=== PATIENT | female | born 1960 | race Caucasian/White ===

== ENCOUNTER 2020-06-24 12:05 | Inpatient (IN) | payer MEDICARE ==
[2020-06-24] VITALS (54 sets, daily range): BP systolic 64–160; BP diastolic 30–92
[~2020-06-24] VITALS: Ht 170.2 cm; Wt 114.8 kg
--- NOTE | ~2020-06-24 | EMS ---
[address] [address] EMS Patient Care Report Name: CARLOS DELGADO Room: [facility]#: [id number] Admission: 06/24/20 Attend Phys: Discharge: Date of : 56 Report #: [id number] THIS REPORT FOR: //name// Report Transmitted: 06/24/2020 12:02 EMS Care Summary [facility] [place] Incident [id number] @ 06/24/2020 11:20 Incident Location [address] [place] [address] Patient CARLOS DELGADO Female, 59 Years 1960 Patient Address [address] [place] [address] Patient History Hypertension (HTN), Patient Allergies , Patient Medications Diltiazem, irbesartan, pantoprazole, Aspirin, atorvastatin, Chief Complaint Ingestion Disposition Transported No Lights/[place] Dispatch Reason Overdose/Poisoning/Ingestion Transported To [facility] Narrative Dispatched to address noted and staged for an intentional overdose. [facility] en route at time noted. Arrived on scene after [employer]. Patient was laying in bed, alert and oriented. [employer] stated that the patient took multiple medication today. (listed in medicaiton). Most of the pills where gone in all five containers. [address] [address] EMS Patient Care Report Name: [facility]AD[id number] Admission: 06/24/20 Attend Phys: Discharge: Date of : 56 Report #: [id number] Patient told [employer] that she intentionally took those medication to kill herself. Patients daughter called 911. Patient did not want to talk with all other responders in the room and agreed to go to [facility]. Patient was assisted out of the home and onto the stretcher. Once in ambulance, vitals where taken and patient stated that she feels as if she is holding the family together and failing at it. Patient stated that she does not want to live anymore. Patient stated she has taken pills once before but it was a long time ago. IV attempted with no success. 4 lead obtained. While en route, vitals where taken again and radio report was given at time noted. Arrived and took patient and her pill bottles to room 1. Patient was moved to bed and RN took verbal report. RN signed for patient and patient signed for self. END REPORT EMT-P David Debbie Initial Vitals @11:39SpO2: 99, @11:43SpO2: 100, @11:44SpO2: 92, @11:48SpO2: 96, @11:48SpO2: 99, @11:53SpO2: 98, @11:56SpO2: 96, @11:58SpO2: 97, @11:48P: 81,R: 16,BP: 173/99, @11:56P: 87,R: 15,BP: 159/99, @11:48GCS: 15, @11:56GCS: 15, @11:28 @11:44Glucose: 133, Assessments @11:28MENTAL:SKIN:HEENT:LUNG SOUNDS:ABDOMEN:PELVIS//GI:EXTREMITIES:PULSE:NEURO: Impression Mental disorder Procedures @11:44 cc () Site: Antecubital-LeftResponse: UnchangedSucceeded Timeline 11:20,Call Received 11:20,Dispatch Notified 11:20,Psap Call 11:20,Dispatched 11:20,En Route 11:26,[place] [address] EMS Patient Care Report Name: CARLOS DELGADO Room: [facility]#: [id number] Admission: 06/24/20 Attend Phys: Discharge: Date of : 56 Report #: [id number] 11:28,At Patient 11:28,BP: / M,PULSE: ,RR: R,SPO2: Ox,ETCO2: ,BG: ,PAIN: ,GCS: , 11:39,BP: / M,PULSE: ,RR: R,SPO2: 99 Ox,ETCO2: ,BG: ,PAIN: ,GCS: , 11:43,BP: / M,PULSE: ,RR: R,SPO2: 100 Ox,ETCO2: ,BG: ,PAIN: ,GCS: , 11:44,BP: / M,PULSE: ,RR: R,SPO2: 92 Ox,ETCO2: ,BG: ,PAIN: ,GCS: , 11:44, cc Site: Antecubital-Left,Response: UnchangedSucceeded, 11:44,BP: / M,PULSE: ,RR: R,SPO2: Ox,ETCO2: ,B,PAIN: ,GCS: , 11:46,Depart Scene 11:48,BP: / M,PULSE: ,RR: R,SPO2: 96 Ox,ETCO2: ,BG: ,PAIN: ,GCS: , 11:48,BP: / M,PULSE: ,RR: R,SPO2: 99 Ox,ETCO2: ,BG: ,PAIN: ,GCS: , 11:48,BP: 173/99 M,PULSE: 81,RR: 16 R,SPO2: Ox,ETCO2: ,BG: ,PAIN: ,GCS: , 11:48,BP: / M,PULSE: ,RR: R,SPO2: Ox,ETCO2: ,BG: ,PAIN: ,GCS: 15, 11:53,BP: / M,PULSE: ,RR: R,SPO2: 98 Ox,ETCO2: ,BG: ,PAIN: ,GCS: , 11:56,BP: / M,PULSE: ,RR: R,SPO2: 96 Ox,ETCO2: ,BG: ,PAIN: ,GCS: , 11:56,BP: 159/99 M,PULSE: 87,RR: 15 R,SPO2: Ox,ETCO2: ,BG: ,PAIN: ,GCS: , 11:56,BP: / M,PULSE: ,RR: R,SPO2: Ox,ETCO2: ,BG: ,PAIN: ,GCS: 15, 11:58,BP: / M,PULSE: ,RR: R,SPO2: 97 Ox,ETCO2: ,BG: ,PAIN: ,GCS: , 12:03,At Destination 12:14,Call Closed Disclaimer v1.1 Copyright 2020 [employer] This EMS Care Summary contains data elements from the applicable legal record (which may be displayed differently). It is designed to provide pertinent information for the following purposes: continuity of care, clinical quality, and state data reporting. The complete legal record is available to ED staff and administrators of the receiving hospital in [employer]'s Patient Tracker. All data is provided "as is."
[~2020-06-24 12:05] MED LIST: ADVAIR; ADVAIR 250-501 EACH; ALBUTEROL2.5 MG/31 IH; ALPRAZOLAM 0.50.5 M1 PO; AMITRIPTYLINE; AMITRIPTYLINE H10 M1 PO; AMLODIPINE BESYL5 MG PO; BUDEPRION SR150 MG PO; CARAFATE 1 GM TA1 G1; CARAFATE 1 GM TA1 GM PO; CIPROFLOXACIN500 M3 OR; COZAAR PO; COZAAR100 MG; CYCLOBENZAPRINE; CYMBALTA30 MG PO; DOXYCYCLINE 10100 MG PO; FLAGYL 250 MG250 MG OR; FLEXERIL; FLUOXETINE; FLUOXETINE HCL40 MG PO; HYDROCODON-ACE1 EACH; IBUPROFEN 600600 M1 PO; MEDROLDOSEPACK PO; MICROGESTIN FE1 EACH PO; MICROGESTIN1 EAC1; NASONEX17 GM; NORCO 5-325 TA1 EACH PO; NORVASC 5 MG TAB5 MG; PERCOCET 5-3251 EACH PO; PROAIR HFA8.5 GM; PROTONIX PO; PROTONIX40 M2; PROTONIX40 M2 PO; PROZAC; SIMVASTATIN; SIMVASTATIN40 MG PO; SINGULAIR; SINGULAIR 10 MG10 M1 PO; TRIAMTERENE-HC1 EAC1 PO; WELLBUTRIN SR150 MG; ZOCOR40 MG PO; ZOFRAN 4 MG ORAL4 M1 DIS; ZPAK PO; [UNRECOGNIZED DRUG - OTHER]; [UNRECOGNIZED DRUG - OTHER]; albuterol; nasonex; proair inhaler
[2020-06-24] MEDS ORDERED: ASA81BEC PO (12:13)
[2020-06-24] MEDS ORDERED: AVAPRO 150 MG150 MG PO (12:14)
[2020-06-24] MEDS ORDERED: CARDIZEM CD 18180 M3 PO (12:14)
[2020-06-24] MEDS ORDERED: LIPITOR20 MG PO (12:15)
[2020-06-24 12:28] LABS: URINE BILIRUBIN NEGATIVE (Negative); URINE BLOOD 2+ (Negative); URINE CLARITY CLEAR; URINE COLOR YELLOW; URINE GLUCOSE-RANDOM NEGATIVE (Negative); URINE KETONES NEGATIVE (Negative); URINE LEUKOCYTES-REFLEX 1+ (Negative); URINE NITRITE-REFLEX POSITIVE (Negative); URINE PROTEIN TRACE (Negative); URINE SPECIFIC GRAVITY 1.025 (1.005-1.030); URINE UROBILINOGEN 0.2 E.U./dl (0.2-1.0)
[2020-06-24 12:36] LABS: AMP/METHAMP Negative (Negative); BARBITURATES Negative (Negative); BENZODIAZEPINES Negative (Negative); COCAINE Negative (Negative); METHADONE Negative (Negative); OPIATES Negative (Negative); PCP Negative (Negative); SQUAMOUS 4-10 Moderate /LPF (0-3); THC Negative (Negative)
[2020-06-24 12:37] LABS: URINE WBC-REFLEX 6-15 Few /HPF (0-5); WBC CLUMPS Few (None Seen)
[2020-06-24 12:38] LABS: BACTERIA-REFLEX >30 Many /HPF (None Seen); CASTS None Seen /LPF (None Seen); CRYSTALS None Seen /LPF (None Seen); MUCUS 0-3 Light strn/LPF (None Seen); URINE RBC 3-10 Few /HPF (0-2)
[2020-06-24 12:42] LABS: ABSOLUTE BASOPHILS 0.2 thou/uL (0.0-0.2); ABSOLUTE EOSINOPHILS 0.2 thou/uL (0.0-0.7); ABSOLUTE LYMPHOCYTES 2.3 thou/uL (0.8-5.3); ABSOLUTE MONOCYTES 0.6 thou/uL (0.0-1.2); ABSOLUTE NEUTROPHILS 12.4 thou/uL (1.6-8.1); BASOPHILS 1.1 %; EOSINOPHILS 1.3 %; HEMOGLOBIN 12.6 gm/dL (12.0-15.0); LYMPHOCYTES 14.4 %; MCH 21.4 pg (26.0-34.0); MCHC 30.7 g/dL (28.0-37.0); MCV 69.6 fL (80.0-100.0); MONOCYTES 3.7 %; MPV 7.7 fl. (7.2-11.1); NUCLEATED RBCS 0 /100WBC; PLATELET COUNT* 364 thou/uL (150-400); POLYS 79.5 %; RBC 5.88 mil/uL (4.20-5.00); RDW-CV 19.9 % (10.5-14.5); WBC 15.7 thou/uL (4.0-11.0)
[2020-06-24 12:44] LABS: CALCIUM 9.1 mg/dL (8.5-10.1); CREATININE 0.9 mg/dL (0.6-1.3); POTASSIUM 3.7 mmol/L (3.5-5.1)
[2020-06-24 12:49] LABS: ALBUMIN 3.9 g/dL (3.4-5.0); TOTAL BILIRUBIN 0.8 mg/dL (<0.1-1.0); TOTAL PROTEIN 8.1 g/dL (6.4-8.2)
[2020-06-24 12:53] LABS: ACETAMINOPHEN < 2 ug/mL (10-30); ALCOHOL < 10 mg/dL (<10); SALICYLATE 5.9 mg/dL (2.8-20.0)
[2020-06-24 13:24] LABS: HYPOCHROMASIA 2+; MICROCYTES 2+; PLATELET ESTIMATE ADEQUATE
[2020-06-24 13:25] LABS: ANISOCYTOSIS 2+; OVALOCYTES 1+
--- NOTE | 2020-06-24 16:21 | EKG ---
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 : 1960 Requested By: Quentin Hurtado Order Number: [id number] MD: Fede More Measurements Intervals [place] Rate: 86 P: 17 IN: 184 QRS: 27 QRSD: 105 T: 23 QT: 399 QTc: 478 Interpretive Statements Sinus rhythm Ventricular premature complex Left atrial enlargement Inferior infarct, old Anteroseptal infarct, age indeterminate Compared to ECG 10/12/2011 15:21:41 Ventricular premature complex(es) now present Atrial abnormality now present Electronically Signed On 06-24-2020 16:21:20 CDT by Fede More [email or web address] <ELECTRONICALLY SIGNED> By: Fede More MD, FACC 06/24/20 1621 1222 1222 Fede More MD, FACC /EPI
--- NOTE | 2020-06-24 17:10 | CON ---
[address] [address] CONSULTATION Name: CARLOS DELGADO Room: [place] [address] [facility]#: [id number] Admission: 06/24/20 Attend Phys: Robert Moore MD Discharge: Date of : 56 Report #: [id number] THIS REPORT FOR: //name// cc: Janina Ferguson Tammy RNP ~ THIS REPORT FOR: //name// DATE OF SERVICE: 06/24/2020 CARDIOLOGY CONSULTATION HISTORY OF PRESENT ILLNESS: The patient 59-year-old white female who I was asked to see in the Emergency Room today after she is noted to be hypertensive. The patient denies previous history of heart disease. She has had multiple problems in the past including scoliosis and has a iza in her back. She has a history of polycythemia vera. She has a history of hypertension, hyperlipidemia, but no history of heart disease. Apparently, the patient was feeling depressed this morning and took an overdose of her pills at 11:00. The medications she took included several tablets of diltiazem, aspirin, atorvastatin, Avapro and Protonix. An ambulance brought the patient to the Emergency Room. She denies any recent chest pain, increased shortness of breath, palpitations, syncope or peripheral edema. PAST MEDICAL HISTORY: She has had a previous ectopic , hernia repair. HOME MEDICATIONS: Include hydrocodone, Protonix, aspirin, diltiazem, Avapro, Lipitor, amlodipine, ____. ALLERGIES: She has no known drug allergies. FAMILY HISTORY: Negative for heart disease. SOCIAL HISTORY: She is . She and her live in [place]. No smoking or alcohol abuse. REVIEW OF SYSTEMS: No history of stroke. She has a history of asthma. No history of liver disease, kidney disease, cancer, chronic skin condition. PHYSICAL EXAMINATION: GENERAL: Revealed a middle-aged female lying in bed. She appeared in no acute distress. VITAL SIGNS: Blood pressure , pulse 70. HEENT: She is anicteric. Conjunctivae are pink. Mucous membranes moist. NECK: Veins do not appear distended. CHEST: Clear to auscultation. CARDIOVASCULAR: Regular rate and rhythm, [place] [address] CONSULTATION Name: CARLOS DELGADO Room: [address]#: [id number] Admission: 06/24/20 Attend Phys: Robert Moore MD Discharge: Date of : 56 Report #: [id number] ABDOMEN: Soft. EXTREMITIES: Had no edema. SKIN: Cool and dry. NEUROLOGIC: Nonfocal. RADIOLOGICAL DATA: ECG shows a sinus rhythm, occasional PVC, incomplete right bundle branch block. LABORATORY DATA: Her workup in the Emergency Room today included sodium 138, potassium 3.7, creatinine 0.9. Liver function studies were normal. Her white blood cell count was 15.7, hemoglobin 12.6. IMPRESSION AND RECOMMENDATIONS: 1. Drug overdose including a calcium cassie and ARB. I would recommend starting vasopressin to support her blood pressure. We will need to observe for bradycardia. 2. History of polycythemia vera. 3. Hypertension. I would hold medications at this time. 4. Hyperlipidemia. The patient is on a statin drug. 5. History of allergies. <ELECTRONICALLY SIGNED> By: Fede More MD, FACC 06/24/20 1710 1556 [id number] More MD, FACC /nt
[2020-06-25] VITALS (108 sets, daily range): BP systolic 74–145; BP diastolic 29–110
[2020-06-25 04:33] LABS: HEMATOCRIT 35.7 % (37.0-47.0); HEMOGLOBIN 10.8 gm/dL (12.0-15.0); MCH 20.9 pg (26.0-34.0); MCHC 30.1 g/dL (28.0-37.0); MCV 69.4 fL (80.0-100.0); MPV 7.9 fl. (7.2-11.1); NUCLEATED RBCS 0 /100WBC; RBC 5.15 mil/uL (4.20-5.00); RDW-CV 20.1 % (10.5-14.5)
[2020-06-25 04:41] LABS: PLATELET COUNT* 528 thou/uL (150-400); WBC 54.6 thou/uL (4.0-11.0)
[2020-06-25 06:41] LABS: CALCIUM 8.6 mg/dL (8.5-10.1)
[2020-06-25 06:43] LABS: CREATININE 2.5 mg/dL (0.6-1.3)
[2020-06-25 07:08] LABS: ABSOLUTE BASOPHILS 0.5 thou/uL (0.0-0.2); ABSOLUTE LYMPHOCYTES 3.8 thou/uL (0.8-5.3); ABSOLUTE MONOCYTES 1.6 thou/uL (0.0-1.2); ABSOLUTE NEUTROPHILS 48.6 thou/uL (1.6-8.1); MYELOCYTES 1 %
[2020-06-25 07:10] LABS: OVALOCYTES 1+; PLATELET ESTIMATE INCREASED; POIKILOCYTOSIS 1+; SCHISTOCYTES 1+
[2020-06-25 07:11] LABS: ANISOCYTOSIS 1+; GIANT PLATELETS RARE; MICROCYTES 3+
[2020-06-25 08:45] LABS: ALBUMIN 3.2 g/dL (3.4-5.0); DIRECT BILIRUBIN 0.5 mg/dL (<0.1-0.3); TOTAL BILIRUBIN 0.9 mg/dL (<0.1-1.0); TOTAL PROTEIN 6.3 g/dL (6.4-8.2)
[2020-06-25 09:25] LABS: BE -9.7 mmol/L (-2 to +3); PCO2 27.4 mmHg (35.0-45.0); PO2 69.6 mmHg (75.0-100.0); pH 7.343 (7.340-7.450)
--- NOTE | 2020-06-25 11:16 | EKG ---
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 : 1960 Requested By: Fede More Order Number: [id number] Celi MD: Fede More Measurements Intervals [place] Rate: 74 P: -83 AL: 269 QRS: -38 QRSD: 152 T: 114 QT: 442 QTc: 491 Interpretive Statements accelerated junctional rhythm Left bundle branch block Compared to ECG 06/24/2020 12:22:07 Left bundle-branch block now present Sinus rhythm no longer present Ventricular premature complex(es) no longer present Electronically Signed On 06-25-2020 11:16:05 CDT by Fede More [email or web address] <ELECTRONICALLY SIGNED> By: Fede More MD, FACC 06/25/20 1116 0550 0550 Fede More MD, FACC /EPI
[2020-06-25 12:22] LABS: CALCIUM 7.7 mg/dL (8.5-10.1); CREATININE 2.9 mg/dL (0.6-1.3); POTASSIUM 3.3 mmol/L (3.5-5.1)
[2020-06-25 15:22] LABS: URINE BLOOD 3+ (Negative); URINE CLARITY CLOUDY; URINE COLOR STRAW; URINE GLUCOSE-RANDOM NEGATIVE (Negative); URINE KETONES NEGATIVE (Negative); URINE LEUKOCYTES 2+ (Negative); URINE NITRITE NEGATIVE (Negative); URINE PROTEIN 2+ (Negative); URINE SPECIFIC GRAVITY >= 1.030 (1.005-1.030); URINE UROBILINOGEN 0.2 E.U./dl (0.2-1.0)
[2020-06-25 15:30] LABS: ICTOTEST (BILI CONFIRMATORY) Negative (Negative); URINE BILIRUBIN 1+ (Negative)
[2020-06-25 15:34] LABS: BACTERIA >30 Many /HPF (None Seen); SQUAMOUS 0-3 Few /LPF (0-3); URINE RBC >20 Many /HPF (0-2); URINE WBC >25 Many /HPF (0-5)
[2020-06-25 15:35] LABS: CASTS None Seen /LPF (None Seen); CRYSTALS None Seen /LPF (None Seen); MUCUS None Seen strn/LPF (None Seen)
[2020-06-25 16:48] LABS: ALBUMIN 2.9 g/dL (3.4-5.0); CREATININE 3.2 mg/dL (0.6-1.3); MAGNESIUM 1.5 mg/dL (1.8-2.4); POTASSIUM 3.1 mmol/L (3.5-5.1); TOTAL BILIRUBIN 0.6 mg/dL (<0.1-1.0); TOTAL PROTEIN 5.8 g/dL (6.4-8.2)
[2020-06-25 20:38] LABS: HEMATOCRIT 32.6 % (37.0-47.0); HEMOGLOBIN 9.8 gm/dL (12.0-15.0); MCH 20.9 pg (26.0-34.0); MCHC 30.2 g/dL (28.0-37.0); MCV 69.1 fL (80.0-100.0); MPV 7.7 fl. (7.2-11.1); RBC 4.72 mil/uL (4.20-5.00); RDW-CV 20.3 % (10.5-14.5)
[2020-06-25 20:40] LABS: WBC 59.2 thou/uL (4.0-11.0)
[2020-06-25 20:42] LABS: CALCIUM 8.1 mg/dL (8.5-10.1); CREATININE 3.3 mg/dL (0.6-1.3); POTASSIUM 3.3 mmol/L (3.5-5.1)
[2020-06-25 20:45] LABS: MAGNESIUM 1.8 mg/dL (1.8-2.4); PHOSPHORUS* 1.8 mg/dL (2.5-4.9)
[2020-06-26] VITALS (156 sets, daily range): BP systolic 71–158; BP diastolic 26–67
[2020-06-26 00:12] LABS: HEMATOCRIT 28.2 % (37.0-47.0); HEMOGLOBIN 8.7 gm/dL (12.0-15.0); MCH 21.2 pg (26.0-34.0); MCHC 30.8 g/dL (28.0-37.0); MPV 8.1 fl. (7.2-11.1); RBC 4.09 mil/uL (4.20-5.00); RDW-CV 19.7 % (10.5-14.5)
[2020-06-26 00:19] LABS: CALCIUM 8.1 mg/dL (8.5-10.1); CREATININE 3.1 mg/dL (0.6-1.3); PHOSPHORUS* 2.1 mg/dL (2.5-4.9); POTASSIUM 4.1 mmol/L (3.5-5.1)
[2020-06-26 00:22] LABS: WBC 55.6 thou/uL (4.0-11.0)
[2020-06-26 04:05] LABS: HEMATOCRIT 28.9 % (37.0-47.0); HEMOGLOBIN 8.7 gm/dL (12.0-15.0); MCH 20.8 pg (26.0-34.0); MCV 69.3 fL (80.0-100.0); MPV 7.8 fl. (7.2-11.1); RBC 4.17 mil/uL (4.20-5.00); RDW-CV 19.9 % (10.5-14.5)
[2020-06-26 04:21] LABS: WBC 59.2 thou/uL (4.0-11.0)
[2020-06-26 04:37] LABS: CALCIUM 7.9 mg/dL (8.5-10.1); CREATININE 3.1 mg/dL (0.6-1.3); MAGNESIUM 1.8 mg/dL (1.8-2.4); PHOSPHORUS* 2.8 mg/dL (2.5-4.9); POTASSIUM 4.2 mmol/L (3.5-5.1)
--- NOTE | 2020-06-26 07:15 | CON ---
[address] [address] CONSULTATION Name: CARLOS DELGADO Room: [address] IN .R.#: [id number] Admission: 06/24/20 Attend Phys: Robert Moore MD Discharge: Date of : 56 Report #: [id number] THIS REPORT FOR: //name// cc: Janina Ferguson Tammy RNP ~ THIS REPORT FOR: //name// DATE OF SERVICE: 06/25/2020 This is a consultation obtained by Dr. Moore for acute kidney injury, oliguric state. HISTORY OF PRESENT ILLNESS: The patient is a 59-year-old female, who was admitted to the hospital with an intentional drug overdose of diltiazem. I am not really sure how many pills the patient took, but the patient is unable to provide that information to me. She was very sleepy and tired when I saw her in the ICU. Apparently, the patient took sustained release diltiazem tablets, around 30. She also took 10 aspirin tablets, 44 atorvastatin tablets and 8 irbesartan tablets and more than 40 tablets of Protonix. She apparently then told her grandson and her daughter to call the ambulance, to take her to the ER. The patient has a history of attempted suicide in the past. The patient has had sustained hypotension since she has been in the hospital. At the time of my evaluation this morning, she was on 3 pressors. Her blood pressure was running in the 80s-90s systolic. She was surprisingly awake, though kept dozing off fairly easily. She was only on 2 liters of oxygen. She has a Wise catheter in place, but the urine was very dark in color. PAST MEDICAL HISTORY: Significant for back surgeries, anxiety, depression, peptic ulcer disease, history of pancreatitis, previous history of suicide attempt. HOME MEDICATIONS: Narcotics, including hydrocodone, ibuprofen, aspirin, diltiazem, irbesartan, and atorvastatin. ALLERGIES: None. REVIEW OF SYSTEMS: No fever, no chills, no chest pain or shortness of breath reported. No abdominal pain, no nausea, no vomiting reported at this time. PHYSICAL EXAMINATION: VITAL SIGNS: On my examination at the time of my evaluation, her blood pressure was running in the low 100s systolic. She was surprisingly not bradycardic. HEENT: Mucous membranes were moist. LUNGS: Diminished, but clear. Neck veins are distended, diminished air entry [place] [address] CONSULTATION Name: CARLOS DELGADO Room: [address]#: [id number] Admission: 06/24/20 Attend Phys: Robert Moore MD Discharge: Date of : 56 Report #: [id number] ABDOMEN: Soft. EXTREMITIES: Show no edema. As mentioned, Wise catheter had dark-colored urine in it. LABORATORY DATA: This morning, her labs showed white count of 54.6; platelets 528,000; hemoglobin 10.8. Metabolic panel had shown sodium of 139, potassium of 3, chloride 106, bicarbonate 16, BUN 28, creatinine is 2.5, glucose 173, calcium 8.6. Drug levels showed less than 2 of acetaminophen and 5.9 of salicylate level, less than 10 alcohol levels. Urinalysis on admission showed trace protein, 2+ blood, many rbc's few wbc A/P 1. Oliguric KIKA secondary to hypoperfusion from profound hypotension and excessive dose of ARBs 2. Suicidal attempt Plan 1. She will need dialysis soon. Considering her hypotension she will need to be on CRRT 2. The dialysability of any of the drugs she has ingested in not well known. 3. Concentrate all meds 4. Try one more litre of saline bolus, give IV albumin and change to a bicarb drip at 125 ml/ hr 5. She is on insulin and dextrose per [facility] recs. She is sritically sick and may need to be intubated Spent 45 mins in ICU coordinating care, examining, discussion with and ICU staff <ELECTRONICALLY SIGNED> By: Alejandra Leger MD 06/26/20 0715 2244 [id number] Leger MD /nt
[2020-06-26 08:12] LABS: RDW-CV 20.3 % (10.5-14.5)
[2020-06-26 08:23] LABS: HEMATOCRIT 28.5 % (37.0-47.0); HEMOGLOBIN 8.8 gm/dL (12.0-15.0); MCH 21.3 pg (26.0-34.0); MCHC 30.7 g/dL (28.0-37.0); MCV 69.5 fL (80.0-100.0); MPV 7.9 fl. (7.2-11.1); RBC 4.1 mil/uL (4.20-5.00)
[2020-06-26 08:27] LABS: CALCIUM 7.7 mg/dL (8.5-10.1); CREATININE 3.2 mg/dL (0.6-1.3); MAGNESIUM 1.9 mg/dL (1.8-2.4); POTASSIUM 4.2 mmol/L (3.5-5.1)
[2020-06-26 08:30] LABS: WBC 60.5 thou/uL (4.0-11.0)
[2020-06-26 14:43] LABS: HEMATOCRIT 29.1 % (37.0-47.0); HEMOGLOBIN 8.9 gm/dL (12.0-15.0); MCH 21.1 pg (26.0-34.0); MCHC 30.5 g/dL (28.0-37.0); MCV 69.1 fL (80.0-100.0); MPV 8.3 fl. (7.2-11.1); RBC 4.2 mil/uL (4.20-5.00); RDW-CV 20.2 % (10.5-14.5)
[2020-06-26 14:55] LABS: CALCIUM 7.5 mg/dL (8.5-10.1); CREATININE 3.3 mg/dL (0.6-1.3); MAGNESIUM 1.9 mg/dL (1.8-2.4); PHOSPHORUS* 2.7 mg/dL (2.5-4.9); POTASSIUM 3.9 mmol/L (3.5-5.1)
[2020-06-26 15:03] LABS: WBC 57.2 thou/uL (4.0-11.0)
[2020-06-26 18:51] LABS: HEMATOCRIT 28.5 % (37.0-47.0); HEMOGLOBIN 8.8 gm/dL (12.0-15.0); MCH 21.2 pg (26.0-34.0); MCHC 30.9 g/dL (28.0-37.0); MCV 68.7 fL (80.0-100.0); MPV 8.1 fl. (7.2-11.1); RBC 4.14 mil/uL (4.20-5.00); RDW-CV 20.8 % (10.5-14.5)
[2020-06-26 18:53] LABS: WBC 51.3 thou/uL (4.0-11.0)
[2020-06-26 18:59] LABS: CALCIUM 7.4 mg/dL (8.5-10.1); CREATININE 3.1 mg/dL (0.6-1.3); MAGNESIUM 1.8 mg/dL (1.8-2.4); PHOSPHORUS* 2.5 mg/dL (2.5-4.9); POTASSIUM 3.8 mmol/L (3.5-5.1)
[2020-06-26 23:14] LABS: HEMATOCRIT 28.2 % (37.0-47.0); HEMOGLOBIN 8.7 gm/dL (12.0-15.0); MCH 21.1 pg (26.0-34.0); MCV 68.2 fL (80.0-100.0); MPV 8.3 fl. (7.2-11.1); RBC 4.13 mil/uL (4.20-5.00); RDW-CV 20.7 % (10.5-14.5)
[2020-06-26 23:17] LABS: WBC 46.6 thou/uL (4.0-11.0)
[2020-06-26 23:26] LABS: CALCIUM 7.2 mg/dL (8.5-10.1); MAGNESIUM 1.8 mg/dL (1.8-2.4); PHOSPHORUS* 2.4 mg/dL (2.5-4.9); POTASSIUM 3.8 mmol/L (3.5-5.1)
[2020-06-27] VITALS (117 sets, daily range): BP systolic 61–178; BP diastolic 33–75
[2020-06-27 01:41] LABS: APTT 33.1 Seconds (25.0-31.3); INR 1.2
[2020-06-27 03:21] LABS: HEMATOCRIT 27.5 % (37.0-47.0); HEMOGLOBIN 8.4 gm/dL (12.0-15.0); MCH 20.7 pg (26.0-34.0); MCHC 30.5 g/dL (28.0-37.0); MPV 8.7 fl. (7.2-11.1); NUCLEATED RBCS 0 /100WBC; PLATELET COUNT* 220 thou/uL (150-400); RBC 4.04 mil/uL (4.20-5.00); RDW-CV 20.2 % (10.5-14.5)
[2020-06-27 03:22] LABS: WBC 42.8 thou/uL (4.0-11.0)
[2020-06-27 03:31] LABS: ALBUMIN 3.2 g/dL (3.4-5.0); CALCIUM 7.1 mg/dL (8.5-10.1); CREATININE 3.1 mg/dL (0.6-1.3); PHOSPHORUS* 2.2 mg/dL (2.5-4.9); POTASSIUM 3.9 mmol/L (3.5-5.1); TOTAL BILIRUBIN 0.9 mg/dL (<0.1-1.0); TOTAL PROTEIN 6.1 g/dL (6.4-8.2)
[2020-06-27 03:32] LABS: MAGNESIUM 1.9 mg/dL (1.8-2.4)
[2020-06-27 03:47] LABS: ABSOLUTE LYMPHOCYTES 1.3 thou/uL (0.8-5.3); ABSOLUTE MONOCYTES 1.3 thou/uL (0.0-1.2); ABSOLUTE NEUTROPHILS 40.2 thou/uL (1.6-8.1); ANISOCYTOSIS 2+; MICROCYTES 2+; PLATELET ESTIMATE ADEQUATE; POLYCHROMASIA 1+
[2020-06-27 03:48] LABS: HYPOCHROMASIA 2+; POIKILOCYTOSIS 2+
[2020-06-27 07:15] LABS: HEMATOCRIT 26.5 % (37.0-47.0); HEMOGLOBIN 8.2 gm/dL (12.0-15.0); MCH 21.2 pg (26.0-34.0); MCHC 31.1 g/dL (28.0-37.0); MPV 8.1 fl. (7.2-11.1); RBC 3.89 mil/uL (4.20-5.00); RDW-CV 20.9 % (10.5-14.5); WBC 38.4 thou/uL (4.0-11.0)
[2020-06-27 07:35] LABS: CALCIUM 6.9 mg/dL (8.5-10.1); CREATININE 3.4 mg/dL (0.6-1.3); MAGNESIUM 1.9 mg/dL (1.8-2.4); PHOSPHORUS* 2.3 mg/dL (2.5-4.9); POTASSIUM 3.8 mmol/L (3.5-5.1)
[2020-06-27 07:45] LABS: INR 1.2; PROTIME 12.2 Seconds (9.20-11.50)
[2020-06-27 08:02] LABS: APTT 125.2 Seconds (25.0-31.3)
--- NOTE | 2020-06-27 08:02 | CON ---
[address] [address] CONSULTATION Name: CARLOS DELGADO Room: [address] IN M.R.#: [id number] Admission: 06/24/20 Attend Phys: Robert Moore MD Discharge: Date of : 56 Report #: [id number] THIS REPORT FOR: //name// cc: Janina Ferguson Tammy RNP ~ THIS REPORT FOR: //name// PHYSICIAN REQUESTING: Dr. Robert Moore. REASON FOR CONSULT: Leukocytosis and history of polycythemia rubra vera. HISTORY OF PRESENT ILLNESS: The patient is a pleasant 59-year-old female who has a history of depression and suicidal attempt before who reportedly on about took a handful of pills and then had her family called EMS. The patient tells me that she was diagnosed with polycythemia rubra vera about 11 years ago, has been followed by Dr. Figueroa for a number of years, does phlebotomy every 3-4 months, last done about 2 weeks ago. She also tells me she had had a TIA about 2 or 3 weeks ago with trouble with left-sided weakness. I think if I understood her correctly, she had been on Plavix and the addition of aspirin since that time. Reportedly, she may have taken about 30 sustained release diltiazem tablets, 10 aspirin, 44 atorvastatin, irbesartan and maybe more than 40 tablets of Protonix. Here, she has been systolic and also fairly anuric. REVIEW OF SYSTEMS: The patient at this time denies fevers or chills. She does have some mild shortness of air. No cough. Does have abdominal discomfort in sort of mid or periumbilical region. It does not move and unchanged by defecation, urination, though she has some constipation, has not been burping or belching more than usual. No fevers or chills. Has well family members at home. Has a cat and a dog at home. PAST MEDICAL HISTORY: Notable for polycythemia rubra vera, also anxiety and depression, peptic ulcer disease; history of pancreatitis, history of previous suicide attempt. FAMILY HISTORY: Noncontributory at this time. MEDICATIONS: At this time currently include heparin 5000 units q.12 hours, Zosyn 3.375 q.8h. and vasopressin on a drip, pantoprazole 40 daily, insulin sliding scale, titrate, phenylephrine, norepinephrine, titrate for pressure, Zofran p.r.n., MiraLax p.r.n., Tylenol p.r.n. LABORATORY TESTS: Here notable for the BUN of 26, creatinine of 3.2, note that on admission, it was 0.9. She has been mostly relatively anuric for the renal doctor's notes. Transaminases have been normal. Total bilirubin 0.6, albumin 2.9. Coags not drawn here. Urine drug screen was negative for cocaine, benzodiazepines, barbiturates, amphetamines, methamphetamines, opiates and phencyclidine and marijuana. White count on admission was 15.7[place] [address] CONSULTATION Name: CARLOS DELGADO Room: [address] IN ..#: [id number] Admission: 06/24/20 Attend Phys: Robert Moore MD Discharge: Date of : 56 Report #: [id number] in 2011 and 2010, her white count usually bounced between 10,000 and 15,000 and even back as far as 2008 that is correct. White count here on admission on the was 15.7. Later on the morning, it was 54,000 and then on has been 59,000 and today 59,000 and also 65,500. Hemoglobin during this time on admission on the was 12.6, today it is 8.8, MCV had begun dropping back in 2010 and it recently has been in the 69 and it is consistent with her induced and intentional iron deficiency, which should not be corrected, platelet count recently 287. Differential has been mostly notable for increased leukocyte/neutrophils. On one of her blood draws, the did mention myelocytes on the at 1%. There is also mention of 1+ schistocytes, 1+ ovalocytes, rare giant platelets. COVID negative. UA has had some blood, nitrite negative, another time nitrite positive on 1 earlier measurement. There also had been quite a few bacteria on initial test. PHYSICAL EXAMINATION: GENERAL: The patient appears her stated age. She is in the ICU with facemask for supplemental oxygen, I think it is BiPAP type oxygen. VITAL SIGNS: Height is 5 feet 7, 170.2 cm, weight is 250 or 264 pounds with a weight of 113 or 120 kilograms. Blood pressure is 83/39, O2 sat 94%, pulse 67, respirations 28 and temperature 100.2. NEUROLOGIC: Face appears to be symmetrical. Speech and thought pattern appear to be appropriate. The patient is moving arms as much as she can with IVs in place. SKIN: Does have some small ecchymosis as appropriate in antecubital fossa and other areas of laboratory draws. LUNGS: Mostly clear. No obvious stridor or wheezes. ABDOMEN: Obese, maybe slightly gassy. No masses. EXTREMITIES: Without clubbing, cyanosis. There is some trace edema. ENT: No obvious bleeding from her mouth or her nares. RADIOLOGIC STUDIES: The patient had chest x-ray done here that shows no significant change. Increased prominence of the right hilar region. ASSESSMENT AND PLAN: 1. Leukocytosis, likely reactive on top of polycythemia vera myeloproliferative disorder. Continue observation. No specific therapy warranted. Could also be related to aspiration pneumonia and stress of hospitalization. Continue monitoring. 2. Polycythemia rubra vera. The patient has had phlebotomies thus her MCV is quite low. I do not supplement iron, could transfuse if hemoglobin is low enough to warrant it. We will follow up with Dr. Figueroa as an outpatient. 3. History of transient ischemic attack not too recently, continues blood thinners as appropriate. 4. Recent intentional drug overdose with hypotension. The patient receiving dialysis to clear blood, is on pressors. 5. Hypotension from drug overdose. Contin[place] [address] CONSULTATION Name: CARLOS DELGADO Room: [address] IN [facility]#: [id number] Admission: 06/24/20 Attend Phys: Robert Moore MD Discharge: Date of : 56 Report #: [id number] 6. Aspiration/pneumonitis/respiratory failure, on antibiotics and supplemental oxygen. 7. History of peptic ulcer, on Protonix. 8. Mood. We will defer to others' additional management. P.S.: We will also try to get records from Dr. Figueroa's' office to clarify and substantiate diagnosis. <ELECTRONICALLY SIGNED> By: Wai Gomez MD 06/27/20 0802 1124 [id number] Gomez MD /nt
--- NOTE | 2020-06-27 09:52 | EKG ---
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 : 1960 Requested By: Fede More Order Number: [id number] Celi MD: Fede More Measurements Intervals [place] Rate: 75 P: MO: QRS: -51 QRSD: 151 T: 109 QT: 523 QTc: 585 Interpretive Statements accelerated junctional rhythm Left bundle branch block Compared to ECG 06/24/2020 12:22:07 Left bundle-branch block now present Sinus rhythm no longer present Ventricular premature complex(es) no longer present Electronically Signed On 06-27-2020 9:51:54 CDT by Fede More [email or web address] <ELECTRONICALLY SIGNED> By: Fede oMre MD, FACC 06/27/20 0951 0033 0033 Fede More MD, FACC /EPI
[2020-06-27 11:44] LABS: HEMATOCRIT 26.6 % (37.0-47.0); HEMOGLOBIN 8.3 gm/dL (12.0-15.0); MCH 21.1 pg (26.0-34.0); MCHC 31.3 g/dL (28.0-37.0); MCV 67.4 fL (80.0-100.0); MPV 8.2 fl. (7.2-11.1); RBC 3.94 mil/uL (4.20-5.00); RDW-CV 20.2 % (10.5-14.5); WBC 35.1 thou/uL (4.0-11.0)
[2020-06-27 11:53] LABS: CALCIUM 7.3 mg/dL (8.5-10.1); CREATININE 3.2 mg/dL (0.6-1.3); POTASSIUM 3.8 mmol/L (3.5-5.1)
--- NOTE | 2020-06-27 13:02 | 2DMMODE ---
[place] [address] 2 D/M-MODE ECHOCARDIOGRAM Name: CARLOS DELGADO Room: [address] ADM IN M.R.#: [id number] Admission: 06/24/20 Attend Phys: Robert Moore, Discharge: Date of : 56 Date of Service: 06/27/20 1302 Report #: [id number] THIS REPORT FOR: cc: Janina Ferguson Tammy RNP Blick, David R. MD [facility] ~ APPROVED REPORT Study performed: 06/27/2020 10:09:32 EXAM: Comprehensive 2D, Doppler, and color-flow Echocardiogram BSA: 2.28 HR: 83 bpm BP: 152/62 mmHg Other Information Study Quality: Fair Indications Dyspnea 2D Dimensions IVSd: 12.08 (7-11mm) LVOT Diam: 19.40 (18-24mm) LVDd: 47.20 mm PWd: 11.24 (7-11mm) Ascending Ao: 26.13 (22-36mm) LVDs: 27.08 (25-40mm) Aortic Root: 30.00 mm Volumes Left Atrial Volume (Systole) LA ESV Index: 46.90 mL/m2 Aortic Valve AoV Peak Elijah.: 1.42 m/s AO Peak Gr.: 8.10 mmHg LVOT Max P.00 mmHg AO Mean Gr.: 4.99 mmHg LVOT Mean P.69 mmHg LVOT Max V: 1.12 m/s AO V2 VTI: 32.52 cm LVOT Mean V: 0.76 m/s ABI (VTI): 2.34 cm2 LVOT V1 VTI: 25.81 cm Mitral Valve E/A Ratio: 1.20 MV Decel. Time: 229.99 [place] [address] 2 D/M-MODE ECHOCARDIOGRAM Name: CARLOS DELGADO Room: [address] [place] .R.#: [id number] Admission: 06/24/20 Attend Phys: Robert Moore, Discharge: Date of : 56 Date of Service: 06/27/20 1302 Report #: [id number] MV E Max Elijah.: 0.93 m/s MV PHT: 66.70 ms MVA (PHT): 3.30 cm2 TDI E/Lateral E': 7.15 E/Medial E': 7.15 Medial E' Elijah.: 0.13 m/s Lateral E' Elijah.: 0.13 m/s Pulmonary Valve PV Peak Elijah.: 1.15 m/s PV Peak Gr.: 5.27 mmHg Tricuspid Valve RAP Estimate: 5.00 mmHg TR Peak Gr.: 19.58 mmHg RVSP: 24.58 mmHg PA Pressure: 24.58 mmHg Left Ventricle The left ventricle is normal size. There is normal LV segmental wall motion. Mild concentric left ventricular hypertrophy. Left ventricular systolic function is hyperdynamic. LVEF is 65-70%. Right Ventricle The right ventricle is normal size. The right ventricular systolic function is normal. Atria Left atrium is mildly dilated. The right atrium size is normal. Aortic Valve The aortic valve is normal in structure. No aortic regurgitation is present. There is no aortic valvular stenosis. Mitral Valve The mitral valve is normal in structure. There is no mitral valve regurgitation noted. No evidence of mitral valve stenosis. Tricuspid Valve The tricuspid valve is normal in structure. Trace tricuspid regurgitation. Pulmonic Valve The pulmonary valve is normal in structure. Trace pulmonic [place] [address] 2 D/M-MODE ECHOCARDIOGRAM Name: ARASELIAMIECARLOS Trujillo Room: [address] IN [facility]#: [id number] Admission: 06/24/20 Attend Phys: Robert Moore, Discharge: Date of : 56 Date of Service: 06/27/20 1302 Report #: [id number] Great Vessels The aortic root is normal in size. Aortic arch is not visualized. IVC is not visualized. Pericardium There is no pericardial effusion. <Conclusion> Mild concentric left ventricular hypertrophy. LVEF is 65-70%. Left atrium is mildly dilated. <ELECTRONICALLY SIGNED> By: Fede More MD, FACC 06/27/20 130 01 01 Fede More MD, FACC /INF
--- NOTE | 2020-06-27 14:45 | EKG ---
[place] [address] ELECTROCARDIOGRAM REPORT Name: CARLOS DELGADO Room: [address] ADM IN M.R.#: [id number] Admission: 06/24/20 Attend Phys: Robert Moore, Discharge: Date of : 56 Date of Service: 06/27/20 1425 Report #: [id number] THIS REPORT FOR: //name// [facility] Test Date: 2020-06-27 Test Time: 14:25:30 Pat Name: CARLOS DELGADO Department: Room: [address] Gender: F [employer] Professional: : 1960 Requested By: Fede More Order Number: [id number] Reading MD: Fede More Measurements Intervals [place] Rate: 69 P: 48 [place]: 235 QRS: 66 QRSD: 105 T: 35 QT: 494 QTc: 530 Interpretive Statements Sinus rhythm Prolonged [place] interval Low voltage, extremity and precordial leads Prolonged QT interval Compared to ECG 06/25/2020 05:50:42 First degree AV block now present Low QRS voltage now present Prolonged QT interval now present Left bundle-branch block no longer present Electronically Signed On 06-27-2020 14:44:59 CDT by Fede More [email or web address] <ELECTRONICALLY SIGNED> By: Fede More MD, FACC 06/27/20 1444 1425 1425 Fede oMre MD, [facility] /EPI
[2020-06-27 16:10] LABS: HEMATOCRIT 27.5 % (37.0-47.0); HEMOGLOBIN 8.6 gm/dL (12.0-15.0); MCH 21.3 pg (26.0-34.0); MCHC 31.2 g/dL (28.0-37.0); MCV 68.2 fL (80.0-100.0); MPV 8.5 fl. (7.2-11.1); RBC 4.04 mil/uL (4.20-5.00); RDW-CV 20.7 % (10.5-14.5)
[2020-06-27 16:24] LABS: CALCIUM 7.9 mg/dL (8.5-10.1); CREATININE 3.1 mg/dL (0.6-1.3); MAGNESIUM 2.1 mg/dL (1.8-2.4); PHOSPHORUS* 2.4 mg/dL (2.5-4.9)
[2020-06-27 20:16] LABS: HEMATOCRIT 27.3 % (37.0-47.0); HEMOGLOBIN 8.6 gm/dL (12.0-15.0); MCH 21.2 pg (26.0-34.0); MCHC 31.4 g/dL (28.0-37.0); MCV 67.6 fL (80.0-100.0); MPV 8.3 fl. (7.2-11.1); RBC 4.04 mil/uL (4.20-5.00); RDW-CV 20.4 % (10.5-14.5); WBC 24.7 thou/uL (4.0-11.0)
[2020-06-27 20:26] LABS: CALCIUM 7.6 mg/dL (8.5-10.1); POTASSIUM 3.9 mmol/L (3.5-5.1)
[2020-06-27 22:06] LABS: HEPATITIS B SURFACE AG Negative (Negative)
[2020-06-28] VITALS (48 sets, daily range): BP systolic 124–175; BP diastolic 58–82
[2020-06-28 00:24] LABS: HEMATOCRIT 27.4 % (37.0-47.0); HEMOGLOBIN 8.5 gm/dL (12.0-15.0); MCV 67.7 fL (80.0-100.0); MPV 8.3 fl. (7.2-11.1); RBC 4.04 mil/uL (4.20-5.00); RDW-CV 20.5 % (10.5-14.5); WBC 22.9 thou/uL (4.0-11.0)
[2020-06-28 00:33] LABS: CALCIUM 7.5 mg/dL (8.5-10.1); CREATININE 2.9 mg/dL (0.6-1.3); PHOSPHORUS* 2.2 mg/dL (2.5-4.9); POTASSIUM 3.9 mmol/L (3.5-5.1)
[2020-06-28 04:24] LABS: ABSOLUTE BASOPHILS 0.1 thou/uL (0.0-0.2); ABSOLUTE EOSINOPHILS 0.1 thou/uL (0.0-0.7); ABSOLUTE LYMPHOCYTES 1.3 thou/uL (0.8-5.3); ABSOLUTE MONOCYTES 0.8 thou/uL (0.0-1.2); ABSOLUTE NEUTROPHILS 19.5 thou/uL (1.6-8.1); BASOPHILS 0.3 %; EOSINOPHILS 0.4 %; HEMATOCRIT 27.1 % (37.0-47.0); HEMOGLOBIN 8.4 gm/dL (12.0-15.0); LYMPHOCYTES 5.8 %; MCH 21.2 pg (26.0-34.0); MCHC 31.1 g/dL (28.0-37.0); MCV 68.1 fL (80.0-100.0); MONOCYTES 3.5 %; MPV 8.6 fl. (7.2-11.1); NUCLEATED RBCS 0 /100WBC; PLATELET COUNT* 131 thou/uL (150-400); RBC 3.97 mil/uL (4.20-5.00); RDW-CV 20.7 % (10.5-14.5); WBC 21.7 thou/uL (4.0-11.0)
[2020-06-28 04:41] LABS: ALBUMIN 2.7 g/dL (3.4-5.0); CALCIUM 7.5 mg/dL (8.5-10.1); CREATININE 2.9 mg/dL (0.6-1.3); POTASSIUM 3.9 mmol/L (3.5-5.1); TOTAL BILIRUBIN 0.6 mg/dL (<0.1-1.0); TOTAL PROTEIN 6.1 g/dL (6.4-8.2)
[2020-06-28 09:00] LABS: HEMATOCRIT 27.1 % (37.0-47.0); HEMOGLOBIN 8.4 gm/dL (12.0-15.0); MCH 21.1 pg (26.0-34.0); MCHC 31.1 g/dL (28.0-37.0); MCV 67.8 fL (80.0-100.0); MPV 8.5 fl. (7.2-11.1); RBC 4.01 mil/uL (4.20-5.00); RDW-CV 20.3 % (10.5-14.5); WBC 22.2 thou/uL (4.0-11.0)
[2020-06-28 09:08] LABS: CALCIUM 7.8 mg/dL (8.5-10.1); CREATININE 3.2 mg/dL (0.6-1.3); MAGNESIUM 2.1 mg/dL (1.8-2.4); PHOSPHORUS* 2.2 mg/dL (2.5-4.9)
[2020-06-29] VITALS (28 sets, daily range): BP systolic 123–159; BP diastolic 58–80
[2020-06-29 05:23] LABS: ABSOLUTE BASOPHILS 0.2 thou/uL (0.0-0.2); ABSOLUTE EOSINOPHILS 0.2 thou/uL (0.0-0.7); ABSOLUTE LYMPHOCYTES 2.2 thou/uL (0.8-5.3); ABSOLUTE MONOCYTES 1.1 thou/uL (0.0-1.2); BASOPHILS 0.9 %; HEMATOCRIT 27.2 % (37.0-47.0); HEMOGLOBIN 8.5 gm/dL (12.0-15.0); LYMPHOCYTES 11.6 %; MCH 21.2 pg (26.0-34.0); MCHC 31.2 g/dL (28.0-37.0); MCV 67.9 fL (80.0-100.0); MONOCYTES 5.9 %; MPV 9.9 fl. (7.2-11.1); NUCLEATED RBCS 0 /100WBC; PLATELET COUNT* 138 thou/uL (150-400); POLYS 80.6 %; RBC 4.01 mil/uL (4.20-5.00); RDW-CV 20.4 % (10.5-14.5); WBC 18.6 thou/uL (4.0-11.0)
[2020-06-29 06:08] LABS: ALBUMIN 2.5 g/dL (3.4-5.0); CALCIUM 7.4 mg/dL (8.5-10.1); CREATININE 3.9 mg/dL (0.6-1.3); POTASSIUM 3.8 mmol/L (3.5-5.1); TOTAL BILIRUBIN 0.5 mg/dL (<0.1-1.0); TOTAL PROTEIN 6.7 g/dL (6.4-8.2)
[2020-06-29 06:13] LABS: HYPOCHROMASIA 2+; PREALBUMIN 14.4 mg/dL (18.0-35.7)
[2020-06-29 06:14] LABS: MICROCYTES 3+; OVALOCYTES 1+; PLATELET ESTIMATE DECREASED
[2020-06-29 06:15] LABS: TOXIC GRANULATION 1+
[2020-06-29 10:32] LABS: % SATURATION 8 % (20-39); IRON 16 ug/dL (50-175)
[2020-06-29] MEDS ORDERED: LANTUS SUBQ (21:39)
[2020-06-29] MEDS ORDERED: HUMALOG100 UNIT/1 SUBQ ×2 (21:41)
[2020-06-30 04:37] LABS: ABSOLUTE BASOPHILS 0.2 thou/uL (0.0-0.2); ABSOLUTE EOSINOPHILS 0.4 thou/uL (0.0-0.7); ABSOLUTE LYMPHOCYTES 2.5 thou/uL (0.8-5.3); ABSOLUTE MONOCYTES 1.4 thou/uL (0.0-1.2); BASOPHILS 0.9 %; EOSINOPHILS 2.4 %; HEMATOCRIT 27.8 % (37.0-47.0); HEMOGLOBIN 8.7 gm/dL (12.0-15.0); LYMPHOCYTES 13.4 %; MCH 21.1 pg (26.0-34.0); MCHC 31.3 g/dL (28.0-37.0); MCV 67.5 fL (80.0-100.0); MONOCYTES 7.4 %; MPV 9.1 fl. (7.2-11.1); NUCLEATED RBCS 0 /100WBC; PLATELET COUNT* 125 thou/uL (150-400); POLYS 75.9 %; RBC 4.11 mil/uL (4.20-5.00); RDW-CV 20.3 % (10.5-14.5); WBC 18.4 thou/uL (4.0-11.0)
[2020-06-30 06:02] LABS: ALBUMIN 2.5 g/dL (3.4-5.0); CALCIUM 7.9 mg/dL (8.5-10.1); POTASSIUM 3.7 mmol/L (3.5-5.1); TOTAL BILIRUBIN 0.5 mg/dL (<0.1-1.0); TOTAL PROTEIN 6.6 g/dL (6.4-8.2)
[2020-06-30 06:04] LABS: CREATININE 5.6 mg/dL (0.6-1.3)
[2020-06-30 06:05] LABS: PREALBUMIN 16.9 mg/dL (18.0-35.7)
[2020-06-30 06:54] LABS: HYPOCHROMASIA 2+; MICROCYTES 3+; OVALOCYTES 1+; PLATELET ESTIMATE DECREASED
[2020-06-30 06:55] LABS: GIANT PLATELETS RARE
[2020-06-30 09:00] VITALS: BP 161/65
[2020-06-30 10:01] VITALS: BP 150/66
[2020-06-30 18:18] VITALS: BP 150/60
[2020-06-30 20:59] VITALS: BP 164/67
[2020-07-01] VITALS: BP 150/76
[2020-07-01 03:38] VITALS: BP 144/79
[2020-07-01 04:27] LABS: ABSOLUTE BASOPHILS 0.2 thou/uL (0.0-0.2); ABSOLUTE EOSINOPHILS 0.7 thou/uL (0.0-0.7); ABSOLUTE LYMPHOCYTES 3.5 thou/uL (0.8-5.3); ABSOLUTE MONOCYTES 1.2 thou/uL (0.0-1.2); ABSOLUTE NEUTROPHILS 11.6 thou/uL (1.6-8.1); BASOPHILS 1.4 %; EOSINOPHILS 4.1 %; HEMATOCRIT 28.2 % (37.0-47.0); HEMOGLOBIN 8.7 gm/dL (12.0-15.0); LYMPHOCYTES 20.4 %; MCH 21.1 pg (26.0-34.0); MONOCYTES 6.9 %; MPV 8.7 fl. (7.2-11.1); NUCLEATED RBCS 0 /100WBC; PLATELET COUNT* 144 thou/uL (150-400); POLYS 67.2 %; RBC 4.15 mil/uL (4.20-5.00); RDW-CV 20.5 % (10.5-14.5); WBC 17.3 thou/uL (4.0-11.0)
[2020-07-01 04:41] LABS: CREATININE 5.1 mg/dL (0.6-1.3); MAGNESIUM 1.9 mg/dL (1.8-2.4); POTASSIUM 3.9 mmol/L (3.5-5.1)
[2020-07-01 12:00] VITALS: BP 158/74
[2020-07-01 15:54] VITALS: BP 153/68
[2020-07-01 19:58] VITALS: BP 155/69
[2020-07-01 23:29] VITALS: BP 161/65
[2020-07-02 04:03] VITALS: BP 168/71
[2020-07-02 05:19] LABS: HEMATOCRIT 27.6 % (37.0-47.0); HEMOGLOBIN 8.6 gm/dL (12.0-15.0); MCH 21.1 pg (26.0-34.0); MCHC 31.4 g/dL (28.0-37.0); MCV 67.3 fL (80.0-100.0); MPV 8.4 fl. (7.2-11.1); RBC 4.1 mil/uL (4.20-5.00); RDW-CV 20.2 % (10.5-14.5)
[2020-07-02 05:50] LABS: CALCIUM 8.2 mg/dL (8.5-10.1); MAGNESIUM 1.8 mg/dL (1.8-2.4); POTASSIUM 3.9 mmol/L (3.5-5.1)
[2020-07-02 06:01] LABS: CREATININE 6.5 mg/dL (0.6-1.3)
[2020-07-02 08:00] VITALS: BP 158/70
[2020-07-02 12:00] VITALS: BP 149/62
[2020-07-02 16:00] VITALS: BP 142/75
[2020-07-02 20:15] VITALS: BP 152/66
[2020-07-03 00:40] LABS: URINE BILIRUBIN NEGATIVE (Negative); URINE BLOOD 1+ (Negative); URINE CLARITY CLEAR; URINE COLOR YELLOW; URINE GLUCOSE-RANDOM NEGATIVE (Negative); URINE KETONES NEGATIVE (Negative); URINE LEUKOCYTES-REFLEX NEGATIVE (Negative); URINE NITRITE-REFLEX NEGATIVE (Negative); URINE PROTEIN NEGATIVE (Negative); URINE SPECIFIC GRAVITY <= 1.005 (1.005-1.030); URINE UROBILINOGEN 0.2 E.U./dl (0.2-1.0)
[2020-07-03 01:35] LABS: SQUAMOUS 4-10 Moderate /LPF (0-3)
[2020-07-03 01:36] LABS: CASTS None Seen /LPF (None Seen); URINE RBC 3-10 Few /HPF (0-2); URINE WBC-REFLEX None Seen /HPF (0-5)
[2020-07-03 01:37] LABS: BACTERIA-REFLEX 1-9 Few /HPF (None Seen); CRYSTALS None Seen /LPF (None Seen)
[2020-07-03 08:00] VITALS: BP 164/79
[2020-07-03 15:37] VITALS: BP 141/63
[2020-07-03 16:00] VITALS: BP 141/58
[2020-07-03 20:11] VITALS: BP 147/70
[2020-07-04 04:10] LABS: HEMATOCRIT 29.4 % (37.0-47.0); MCH 21.4 pg (26.0-34.0); MCHC 30.6 g/dL (28.0-37.0); RBC 4.2 mil/uL (4.20-5.00); RDW-CV 20.6 % (10.5-14.5); WBC 17.5 thou/uL (4.0-11.0)
[2020-07-04 04:17] LABS: CALCIUM 8.7 mg/dL (8.5-10.1); CREATININE 6.5 mg/dL (0.6-1.3); POTASSIUM 4.7 mmol/L (3.5-5.1)
[2020-07-04 04:21] LABS: CALCIUM 8.8 mg/dL (8.5-10.1); CREATININE 6.5 mg/dL (0.6-1.3); POTASSIUM 4.7 mmol/L (3.5-5.1); TOTAL BILIRUBIN 0.3 mg/dL (<0.1-1.0); TOTAL PROTEIN 7.5 g/dL (6.4-8.2)
[2020-07-04 08:00] VITALS: BP 173/73
[2020-07-04 12:43] VITALS: BP 164/71
[2020-07-04 21:00] VITALS: BP 127/52
[2020-07-05 07:00] LABS: HEMATOCRIT 29.9 % (37.0-47.0); HEMOGLOBIN 9.3 gm/dL (12.0-15.0); MCH 22.5 pg (26.0-34.0); MCHC 31.2 g/dL (28.0-37.0); MCV 72.1 fL (80.0-100.0); MPV 7.4 fl. (7.2-11.1); RBC 4.15 mil/uL (4.20-5.00); RDW-CV 20.4 % (10.5-14.5); WBC 17.6 thou/uL (4.0-11.0)
[2020-07-05 07:18] LABS: ALBUMIN 3.2 g/dL (3.4-5.0); CREATININE 6.6 mg/dL (0.6-1.3); PHOSPHORUS* 7.1 mg/dL (2.5-4.9); POTASSIUM 4.6 mmol/L (3.5-5.1)
[2020-07-05 07:44] VITALS: BP 180/87
[2020-07-05 20:00] VITALS: BP 151/90
[2020-07-06 00:22] VITALS: BP 157/86
[2020-07-06 05:48] LABS: ALBUMIN 3.7 g/dL (3.4-5.0); CALCIUM 9.6 mg/dL (8.5-10.1); PHOSPHORUS* 6.6 mg/dL (2.5-4.9); POTASSIUM 4.5 mmol/L (3.5-5.1)
[2020-07-06 05:49] LABS: CREATININE 5.4 mg/dL (0.6-1.3)
[2020-07-06 08:00] VITALS: BP 157/82
[2020-07-06 12:00] VITALS: BP 165/71
[2020-07-06 15:30] VITALS: BP 152/82
[2020-07-06 19:17] VITALS: BP 160/85
[2020-07-07 05:01] LABS: HEMATOCRIT 33.2 % (37.0-47.0); HEMOGLOBIN 10.2 gm/dL (12.0-15.0); MCH 22.5 pg (26.0-34.0); MCHC 30.6 g/dL (28.0-37.0); MCV 73.4 fL (80.0-100.0); MPV 7.4 fl. (7.2-11.1); NUCLEATED RBCS 0 /100WBC; PLATELET COUNT* 454 thou/uL (150-400); RBC 4.53 mil/uL (4.20-5.00); RDW-CV 20.9 % (10.5-14.5); WBC 23.2 thou/uL (4.0-11.0)
[2020-07-07 05:09] LABS: CALCIUM 9.7 mg/dL (8.5-10.1); POTASSIUM 4.4 mmol/L (3.5-5.1)
[2020-07-07 05:49] LABS: ABSOLUTE LYMPHOCYTES 4.2 thou/uL (0.8-5.3); ABSOLUTE MONOCYTES 1.2 thou/uL (0.0-1.2); ABSOLUTE NEUTROPHILS 17.9 thou/uL (1.6-8.1); ANISOCYTOSIS 1+; HYPOCHROMASIA 1+; PLATELET ESTIMATE INCREASED
[2020-07-07 05:50] LABS: MICROCYTES 1+; OVALOCYTES 1+; POIKILOCYTOSIS 1+; POLYCHROMASIA 1+
[2020-07-07 08:00] VITALS: BP 155/60
[2020-07-07] MEDS ORDERED: ZYPREXA 5 MG TAB5 M1 PO (08:38)
[2020-07-07] MEDS ORDERED: PROZAC20 MG PO (08:38)
[2020-07-07] MEDS ORDERED: NEPHRO-VITE RX1 TA1 PO (08:38)
[2020-07-07] MEDS ORDERED: NORVASC5 M1 PO (08:42)
[2020-07-07 16:00] VITALS: BP 132/76
[2020-07-07 20:30] VITALS: BP 140/77
[2020-07-08 05:00] VITALS: BP 150/85
[2020-07-08 08:00] VITALS: BP 162/90
[2020-07-08] MEDS ORDERED: VALTREX 500 MG500 M1 PO (09:06)
[2020-07-08] MEDS ORDERED: NEURONTIN100 MG PO (09:06)
[2020-07-08 12:35] VITALS: BP 162/90
[2020-07-08 14:34] VITALS: BP 162/90
[2020-07-08 14:35] VITALS: BP 162/90
== END 2020-07-08 17:40 | disposition home health service (06) | DRG 917 ==
LOC: M.ERS 12:05 → M.ICU 14:10 → M.TBA-ER 14:10 → M.ICU 17:35 → M.2W 06-30 20:10
PROVIDERS: Emergency Medicine Emergency Medical Services; Internal Medicine; Internal Medicine Nephrology; ADMIT Internal Medicine; ATTEND Internal Medicine
PROC: 02HV33Z Insertion of Infusion Device into Superior Vena Cava, Percutaneous Approach (ICD-10-PCS; principal; 2020-06-24)
PROC: 02HV33Z Insertion of Infusion Device into Superior Vena Cava, Percutaneous Approach (ICD-10-PCS; 2020-06-25)
PROC: 5A1D90Z Performance of Urinary Filtration, Continuous, Greater than 18 hours Per Day (ICD-10-PCS; 2020-06-25)
PROC: 03HY32Z Insertion of Monitoring Device into Upper Artery, Percutaneous Approach (ICD-10-PCS; 2020-06-25)
PROC: 5A09357 Assistance with Respiratory Ventilation, Less than 24 Consecutive Hours, Continuous Positive Airway Pressure (ICD-10-PCS; 2020-06-25)
PROC: 5A09457 Assistance with Respiratory Ventilation, 24-96 Consecutive Hours, Continuous Positive Airway Pressure (ICD-10-PCS; 2020-06-26)
PROC: 5A09357 Assistance with Respiratory Ventilation, Less than 24 Consecutive Hours, Continuous Positive Airway Pressure (ICD-10-PCS; 2020-06-28)
PROC: 5A09357 Assistance with Respiratory Ventilation, Less than 24 Consecutive Hours, Continuous Positive Airway Pressure (ICD-10-PCS; 2020-06-29)
PROC: 02PYX3Z Removal of Infusion Device from Great Vessel, External Approach (ICD-10-PCS; 2020-06-30)
PROC: 5A09357 Assistance with Respiratory Ventilation, Less than 24 Consecutive Hours, Continuous Positive Airway Pressure (ICD-10-PCS; 2020-06-30)
PROC: 02H633Z Insertion of Infusion Device into Right Atrium, Percutaneous Approach (ICD-10-PCS; 2020-06-30)
PROC: 5A09357 Assistance with Respiratory Ventilation, Less than 24 Consecutive Hours, Continuous Positive Airway Pressure (ICD-10-PCS; 2020-07-01)
PROC: 5A1D70Z Performance of Urinary Filtration, Intermittent, Less than 6 Hours Per Day (ICD-10-PCS; 2020-07-02)
PROC: 0JH63XZ Insertion of Tunneled Vascular Access Device into Chest Subcutaneous Tissue and Fascia, Percutaneous Approach (ICD-10-PCS; 2020-07-05)
PROC: 5A1D70Z Performance of Urinary Filtration, Intermittent, Less than 6 Hours Per Day (ICD-10-PCS; 2020-07-05)
PROC: B548ZZA Ultrasonography of Superior Vena Cava, Guidance (ICD-10-PCS; 2020-07-05)
PROC: B5181ZA Fluoroscopy of Superior Vena Cava using Low Osmolar Contrast, Guidance (ICD-10-PCS; 2020-07-05)
PROC: 02HV33Z Insertion of Infusion Device into Superior Vena Cava, Percutaneous Approach (ICD-10-PCS; 2020-07-05)
PROC: 5A1D70Z Performance of Urinary Filtration, Intermittent, Less than 6 Hours Per Day (ICD-10-PCS; 2020-07-07)
DX: T46.1X2A Poisoning by calcium-channel blockers, intentional self-harm, initial encounter (principal); J69.0 Pneumonitis due to inhalation of food and vomit; N17.0 Acute kidney failure with tubular necrosis; R65.11 Systemic inflammatory response syndrome (SIRS) of non-infectious origin with acute organ dysfunction; J96.01 Acute respiratory failure with hypoxia; N18.6 End stage renal disease; T78.2XXA Anaphylactic shock, unspecified, initial encounter; R45.851 Suicidal ideations; N39.0 Urinary tract infection, site not specified; K55.9 Vascular disorder of intestine, unspecified; I12.0 Hypertensive chronic kidney disease with stage 5 chronic kidney disease or end stage renal disease; Z20.828 Contact with and (suspected) exposure to other viral communicable diseases; F41.9 Anxiety disorder, unspecified; J45.909 Unspecified asthma, uncomplicated; E78.5 Hyperlipidemia, unspecified; F32.9 Major depressive disorder, single episode, unspecified; D72.829 Elevated white blood cell count, unspecified; D45 Polycythemia vera; I95.9 Hypotension, unspecified; B96.20 Unspecified Escherichia coli [E. coli] as the cause of diseases classified elsewhere; T46.5X2A Poisoning by other antihypertensive drugs, intentional self-harm, initial encounter; T46.6X2A Poisoning by antihyperlipidemic and antiarteriosclerotic drugs, intentional self-harm, initial encounter; D64.9 Anemia, unspecified; E11.22 Type 2 diabetes mellitus with diabetic chronic kidney disease; B02.9 Zoster without complications; H81.93 Unspecified disorder of vestibular function, bilateral; Z87.11 Personal history of peptic ulcer disease; Y92.89 Other specified places as the place of occurrence of the external cause; Z86.73 Personal history of transient ischemic attack (TIA), and cerebral infarction without residual deficits; Z23 Encounter for immunization; Z99.2 Dependence on renal dialysis